=== PATIENT | female | born 1955 | race Caucasian/White ===

== ENCOUNTER 2017-01-27 13:08 | Emergency (ER) | payer OTHER | END 2017-01-27 14:48 | disposition home or self-care (01) | LOC: FER 13:08 | DX: S01.81XA Laceration without foreign body of other part of head, initial encounter (principal); I10 Essential (primary) hypertension; E11.9 Type 2 diabetes mellitus without complications; F32.9 Major depressive disorder, single episode, unspecified; E78.00 Pure hypercholesterolemia, unspecified; Z23 Encounter for immunization; Z79.84 Long term (current) use of oral hypoglycemic drugs; Z79.899 Other long term (current) drug therapy; Z88.5 Allergy status to narcotic agent; W27.8XXA Contact with other nonpowered hand tool, initial encounter; Y92.009 Unspecified place in unspecified non-institutional (private) residence as the place of occurrence of the external cause | CPT/HCPCS: 90471; 90715 ==

== ENCOUNTER 2020-12-30 11:22 | Inpatient (IN) | payer OTHER ==
[~2020-12-30] VITALS: Ht 152.4 cm; Wt 49.6 kg
[~2020-12-30 11:22] MED LIST: ASPIRIN EC81 MG PO; COREG 3.125M3.125 MG PO; JANUVIA100 MG PO; LEXAPRO20 MG PO; LIPITOR40 MG PO; MAG-OXIDE 400M400 MG PO; METFORMIN HCL500 MG PO; PLAVIX75 MG PO; PROBIOTIC1 EAC1 PO; PROTONIX 40MG T40 MG PO; TRAZODONE 50MG50 MG PO; ZYRTEC10 M3 PO
[2020-12-30 12:09] LABS: BASOPHIL 0.4 % (0-2); EOSINOPHIL 0.5 % (0-7); HCT 39.1 % (37.0-47.0); HGB 13.9 g/dl (12.5-16.0); LYMPHOCYTE 12.1 % (15-48); MCH 34.3 pg (25.0-31.0); MCHC 35.5 g/dL (32.0-36.0); MCV 96.5 fL (78.0-100.0); MONOCYTE 6.8 % (0-12); MPV 10.3 fL (6.0-9.5); NEUTROPHIL 79.7 % (41-80); NRBC 0; PLT 210 K/uL (150-400); RBC 4.05 M/uL (4.20-5.40); RDW 14.7 % (11.5-14.0); WBC 8.2 K/uL (4.0-10.5)
[2020-12-30 12:34] LABS: ALBUMIN 3.5 g/dL (3.4-5.0); BILIRUBIN - TOTAL 0.9 mg/dL (0.2-1.0); BUN/CREAT RATIO (CALC) 18.8 RATIO; CREATININE 0.85 mg/dL (0.51-0.95); POTASSIUM 3.7 mmol/L (3.5-5.1); TOTAL PROTEIN 6.5 g/dL (6.4-8.2)
[2020-12-30 12:41] LABS: LACTIC ACID 6.1 mmol/L (0.4-1.9)
[2020-12-30 13:14] LABS: BILIRUBIN NEGATIVE (NEGATIVE); BLOOD NEGATIVE Ery/uL (NEGATIVE); CLARITY CLEAR (CLEAR); COLOR YELLOW (YELLOW); GLUCOSE (U) NORMAL (NORMAL); LEUKOCYTES 2+ Leu/uL (NEGATIVE); NITRITE POSITIVE (NEGATIVE); PROTEIN TRACE (LOW) mg/dL (NEGATIVE); SPECIFIC GRAVITY >=1.030 (1.001-1.030); UROBILINOGEN 0.2 mg/dL (0.2-1.0)
[2020-12-30 13:21] LABS: BACTERIA 4+
[2020-12-30] MEDS ORDERED: CALCIUM PO (18:23)
[2020-12-30] MEDS ORDERED: CHOLECALCIFEROL PO (18:23)
[2020-12-30] MEDS ORDERED: NITROQUIK SL0.4 MG SL (18:24)
[2020-12-31 05:28] LABS: HCT 34.7 % (37.0-47.0); HGB 12.1 g/dl (12.5-16.0); MCH 33.7 pg (25.0-31.0); MCHC 34.9 g/dL (32.0-36.0); MCV 96.7 fL (78.0-100.0); MPV 10.1 fL (6.0-9.5); RBC 3.59 M/uL (4.20-5.40); RDW 14.9 % (11.5-14.0); WBC 5.8 K/uL (4.0-10.5)
[2020-12-31 05:51] LABS: BUN/CREAT RATIO (CALC) 16.7 RATIO; CREATININE 0.66 mg/dL (0.51-0.95)
[2020-12-31 09:15] LABS: IRON % SATURATION 24.6 %SAT (20-50)
[2020-12-31 10:35] LABS: PHOSPHORUS <0.5 mg/dL (2.6-4.7)
--- NOTE | 2020-12-31 12:21 | NUR ---
PT DISCHARGED AT 1208 VIA WHEELCHAIR. DAUGHTER AT BEDSIDE GOT BELONGINGS. PT LEFT WITH CLOTHING, SHOES AND COAT, CELLPHONE AND MASK. PT DISCHARGE INSTRUCTIONS GIVEN OVER JOHAN AND HYPERKALEMIA. PT EDUCATION ON MEDICATIONS THAT CAN CAUSE JOHAN LIKE NSAIDS AND TOLD TO AVOID NSAIDS. ALSO AVOID HIGH POTASSIUM FOODS. PT EDUCATED ON NEW MEDICATIONS NORCO AND FLEXIRIL LIKE RESP DEPRESSION, ADDICTION, THEFT AND OTHER SIDE EFFECTS. TOLD PT TO CALL 911 OR GO TO THE ER IF SYMPTOMS BECOME WORSE.
--- NOTE | 2020-12-31 14:52 | NUR ---
12/31/20 Ms. Goodson lives alone. She was a month ago and is experiencing grief. She does not have any DME. Referrals were made to [facility] for a rw and Outpatient PT at [facility] Outpatient services for January 08 at 2:45 per patient choice. Discharge is anticipated for 01/02. - A report was given to KENNEDI Grajeda, RN.
--- NOTE | 2020-12-31 15:16 | NUR ---
PT RW ARRIVED AT 1514 12/31/20. PLACED IN ROOM WITH PT.
--- NOTE | 2020-12-31 15:23 | NUR ---
PT TAKES 1000 MG METFORMIN AT HOME FOR DIABETES BUT MEDICATION WAS NOT STARTED HERE AT THE HOSPITAL IN CASE OF ANTICIPATED CT.
[2021-01-01 05:12] LABS: BASOPHIL 0.7 % (0-2); EOSINOPHIL 1.8 % (0-7); HCT 35.1 % (37.0-47.0); HGB 12.4 g/dl (12.5-16.0); LYMPHOCYTE 25.1 % (15-48); MCH 34.1 pg (25.0-31.0); MCHC 35.3 g/dL (32.0-36.0); MCV 96.4 fL (78.0-100.0); MONOCYTE 11.8 % (0-12); NEUTROPHIL 60.4 % (41-80); NRBC 0; PLT 190 K/uL (150-400); RBC 3.64 M/uL (4.20-5.40); RDW 15.1 % (11.5-14.0); WBC 5.6 K/uL (4.0-10.5)
[2021-01-01 05:38] LABS: ALBUMIN 3.1 g/dL (3.4-5.0); BILIRUBIN - TOTAL 0.8 mg/dL (0.2-1.0); BUN/CREAT RATIO (CALC) 17.7 RATIO; CREATININE 0.62 mg/dL (0.51-0.95); MAGNESIUM 1.3 mg/dL (1.8-2.4); PHOSPHORUS 1.5 mg/dL (2.6-4.7); POTASSIUM 3.6 mmol/L (3.5-5.1); TOTAL PROTEIN 6.1 g/dL (6.4-8.2)
--- NOTE | 2021-01-01 09:15 | NUR ---
VERIFIED WITH [facility] THAT MAG AND KPHOS ARE COMPATIBLE
--- NOTE | 2021-01-01 13:39 | NUR ---
PT BP 181/85 ON NOONE ROUNDS. PRN LOPRESSOR GIVEN IV, RECHECKED AFTER 30 MIN AND NEW BP WAS 164/79 HR 73.
[2021-01-01] MEDS ORDERED: K-PHOS NEUTRAL250 MG PO (14:00)
[2021-01-01] MEDS ORDERED: CEFDINIR300 MG PO (14:00)
--- NOTE | 2021-01-01 16:54 | NUR ---
PT DC'D VIA WHEELCHAIR WITH CLOTHING AND VALUABLES. DAUGHTER TOOK ROLLING WALKER AND ITEMS OUT TO CAR. 20 LAC DC'D TELE DC'D. DISCHARGE INSTRUCTIONS GIVEN OVER KEEGAN AND [place] ACOSTA. APPOINTMENTS MADE WITH OUTPATIENT THERAPY AND PCP AND NEPHROLOGY.
== END 2021-01-01 16:17 | disposition home or self-care (01) | DRG 872 ==
LOC: FER 11:22 → FTCU 17:24
PROVIDERS: Internal Medicine; ADMIT Hospitalist
DX: A41.9 Sepsis, unspecified organism (principal); N30.00 Acute cystitis without hematuria; E87.2 Acidosis; R65.20 Severe sepsis without septic shock; E83.39 Other disorders of phosphorus metabolism; E83.42 Hypomagnesemia; E83.51 Hypocalcemia; E53.8 Deficiency of other specified B group vitamins; E11.9 Type 2 diabetes mellitus without complications; E86.0 Dehydration; I25.10 Atherosclerotic heart disease of native coronary artery without angina pectoris; D64.9 Anemia, unspecified; Z20.822 Contact with and (suspected) exposure to COVID-19; K44.9 Diaphragmatic hernia without obstruction or gangrene; I10 Essential (primary) hypertension; E78.5 Hyperlipidemia, unspecified; Z90.49 Acquired absence of other specified parts of digestive tract; Z90.710 Acquired absence of both cervix and uterus; Z98.890 Other specified postprocedural states; Z90.13 Acquired absence of bilateral breasts and nipples; Z85.3 Personal history of malignant neoplasm of breast; Z92.21 Personal history of antineoplastic chemotherapy
CPT/HCPCS: 36415; 70450; 71045; 80048; 80053; 81001; 82607; 82962; 83540; 83550; 83605; 83735; 84100; 84484; 85025; 87040; 87088; 97110; 97116; 97162; 97166; 97530-GP; 97535; J0610; J0696; J3420; J3475; J7030; J7040; J7120; Q9967; U0002

== ENCOUNTER 2022-03-25 17:28 | Emergency (ER) | payer OTHER ==
[~2022-03-25 17:28] MED LIST changes: +CALCIUM PO; +CEFDINIR300 MG PO; +CHOLECALCIFEROL PO; +K-PHOS NEUTRAL250 MG PO; +NITROQUIK SL0.4 MG SL
[2022-03-25] MEDS ORDERED: NORCO 5-325 TA1 EACH PO (23:30)
== END 2022-03-25 23:57 | disposition home or self-care (01) ==
LOC: FER 17:28
DX: S22.058A Other fracture of T5-T6 vertebra, initial encounter for closed fracture (principal); S22.068A Other fracture of T7-T8 thoracic vertebra, initial encounter for closed fracture; S22.088A Other fracture of T11-T12 vertebra, initial encounter for closed fracture; S32.018A Other fracture of first lumbar vertebra, initial encounter for closed fracture; S32.038A Other fracture of third lumbar vertebra, initial encounter for closed fracture; S32.058A Other fracture of fifth lumbar vertebra, initial encounter for closed fracture; E11.9 Type 2 diabetes mellitus without complications; X50.1XXA Overexertion from prolonged static or awkward postures, initial encounter; Y92.009 Unspecified place in unspecified non-institutional (private) residence as the place of occurrence of the external cause
CPT/HCPCS: 72125; 72128; 72131